=== PATIENT | male | born 1960 | race Caucasian/White ===

== ENCOUNTER 2022-01-11 16:49 | Emergency (ER) | payer OTHER, MEDICAID ==
--- NOTE | 2022-01-11 17:25 | NUR ---
PATIENT LEFT WITHOUT BEING SEEN BY DR. ALVARADO. NO FURTHER CARE PROVIDED FOR PATIENT.
[2022-01-11] MEDS ORDERED: ACET-9882 PO (20:59)
[2022-01-11] MEDS ORDERED: BACI1PAC6 TP (21:04)
== END 2022-01-11 17:25 | disposition left against medical advice (07) ==
LOC: MED 16:49
DX: M25.569 Pain in unspecified knee (principal); Z53.21 Procedure and treatment not carried out due to patient leaving prior to being seen by health care provider

== ENCOUNTER 2022-01-11 19:34 | Emergency (ER) | payer OTHER, MEDICAID ==
[~2022-01-11] VITALS: Ht 167.6 cm; Wt 97.1 kg
[2022-01-11 20:14] VITALS: BP 114/60
--- NOTE | 2022-01-11 20:25 | NUR ---
TO LOBBY FOLLOWING TRIAGE
[2022-01-11] MEDS ORDERED: HYDROcodone/APAP 5/325 MG 1 TAB TAB PO ONE (20:50)
[2022-01-11] MEDS ORDERED: ACET-9882 PO (20:59)
[2022-01-11] MEDS ORDERED: BACI1PAC6 TP (21:04)
--- NOTE | 2022-01-11 21:30 | NUR ---
PT W/C ASSISTED TO ER BED 8
[2022-01-11] MEDS ORDERED: HYDROcodone/APAP 5/325 MG 1 TAB TAB ONE (22:10)
--- NOTE | 2022-01-11 23:00 | NUR ---
61YR OLD MALE BIB C/O R KNEE PAIN , HEAD PAIN AND BACK . STATES PT FALL TODAY UNWITNESSED FALL. PT COMPLIANTS OF PAIN LEVEL OF 5/10. NKDA HUNTINGTION DISEASE HYPERTHYROID DM
== END 2022-01-11 21:30 | disposition home or self-care (01) ==
LOC: MED 19:34
DX: S39.012A Strain of muscle, fascia and tendon of lower back, initial encounter (principal); R51.9 Headache, unspecified; S83.91XA Sprain of unspecified site of right knee, initial encounter; W18.30XA Fall on same level, unspecified, initial encounter; Y93.89 Activity, other specified; Y92.89 Other specified places as the place of occurrence of the external cause; Y99.8 Other external cause status
CPT/HCPCS: 70450; 72072; 72100; 73562; 99284